=== PATIENT | male | born 1995 | race Caucasian/White ===

== ENCOUNTER 2017-06-03 22:34 | Emergency (ER) | payer BC ==
[2017-06-03] MEDS ORDERED: Cyclobenzaprine TAB* 10 MG PO ONE (23:40)
[2017-06-03] MEDS ORDERED: Dexamethasone TAB* 4 MG PO ONE (23:40)
--- NOTE | 2017-06-03 23:45 | ED ---
Neck Pain - HPI Summary HPI Summary: 21M presents with neck pain for two days. He states the area has become stiff. He denies any fever, headache, or photophobia. it is just on left side of neck. tried naproxen with minimal relief. no injury. no numbness or tingling. no history of neck pain. - History of Current Complaint Chief Complaint: EDNeckComplaint Stated Complaint: NECK PAIN Time Seen by Provider: 06/03/17 22:56 Pain Intensity: 6 - Allergies/Home Medications Allergies/Adverse Reactions: Allergies Allergy/AdvReac Type Severity Reaction Status Date / Time Amoxicillin Allergy Swelling Verified 06/03/17 22:48 PMH/Surg Hx/FS Hx/Imm Hx Endocrine/Hematology History: Denies: Hx Anticoagulant Therapy Cardiovascular History: Denies: Hx Hypertension Infectious Disease History: No Infectious Disease History: Denies: Traveled Outside the [place] in Last 30 Days - Family History Known Family History: Negative: Cardiac Disease - Social History Alcohol Use: None Substance Use Type: Reports: None Smoking Status (MU): Never Smoked Tobacco Review of Systems Negative: Fever Negative: Chest Pain Negative: Shortness Of Breath Positive: Myalgia - neck pain All Other Systems Reviewed And Are Negative: Yes Physical Exam Triage Information Reviewed: Yes Vital Signs On Initial Exam: Initial Vitals Temp Pulse Resp BP Pulse Ox 99.1 F 92 16 153/84 97 06/03/17 22:40 06/03/17 22:40 06/03/17 22:40 06/03/17 22:40 06/03/17 22:40 Vital Signs Reviewed: Yes Appearance: Positive: Well-Appearing Skin: Positive: Warm, Dry Head/Face: Positive: Normal Head/Face Inspection Eyes: Positive: Normal, Conjunctiva Clear Respiratory/Lung Sounds: Positive: Clear to Auscultation, Breath Sounds Present Cardiovascular: Positive: Normal, RRR Musculoskeletal: Positive: Limited @ - neck, Other - tenderness over left side of neck, no midline tenderness, 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 Neck Course/Dx - Course Course Of Treatment: 21M presents with neck pain for two days. He states the area has become stiff. He denies any fever, headache, or photophobia. it is just on left side of neck. tried naproxen with minimal relief. no injury. no numbness or tingling. no history of neck pain. on exam no midline tenderness. tender over left trapezius. will treat with flexeril and decadron. patient understand and agrees with plan. - Diagnoses Differential Dx/HQI/PQRI: Positive: Sprain, Strain, Torticollis Provider Diagnoses: Neck pain Discharge - Discharge Plan Condition: Good Disposition: HOME Prescriptions: Cyclobenzaprine TAB* [Flexeril 10 MG TAB*] 10 mg PO TID PRN #9 tab PRN Reason: Pain Dexamethasone TAB* [Decadron TAB*] 4 mg PO DAILY #4 tab Patient Education Materials: Cervical Sprain (ED) Referrals: [facility] - Guillermo CRUZ [Primary Care Provider] - Additional Instructions: Take steroid once a day 4 more days Take muscle relaxers three times a day for 3 days Use pain mediation as prescribed can add Tylenol every 6 hours ice/heat area, move as much as possible Follow up with primary within 5 days Return to ED if develop any new or worsening symptoms
[2017-06-04 00:17] VITALS: BP 146/79
== END 2017-06-04 00:15 | disposition home or self-care (01) ==
LOC: ED 22:34
DX: M54.2 Cervicalgia (principal)
CPT/HCPCS: 99283; A9270-GY; J8540